=== PATIENT | female | born 1985 | race African-American/Black ===

== ENCOUNTER 2023-10-31 06:50 | Inpatient (IN) | payer OTHER ==
[2023-10-31] MEDS ORDERED: SUCCINYLCHOLINE CHLORIDE 200 MG/10 ML SYRINGE ONE (07:43)
[2023-10-31] MEDS ORDERED: morphine SULFATE/PF 1 MG/2 ML (2cc Syringe - QUVA) ONE (07:43)
[2023-10-31 08:03] VITALS: BMI 42.0
[2023-10-31] MEDS ORDERED: ELECTROLYTE-148 SOLN 500 ML IV ONE (08:30)
[2023-10-31] MEDS ORDERED: ELECTROLYTE-148 SOLN 1,000 ML IV SCH (08:30)
[2023-10-31] MEDS ORDERED: CITRIC ACID/SODIUM CITRATE 30 ML UNIT-DOSE CUP PO ONE (08:45)
[2023-10-31] MEDS ORDERED: ONDANSETRON 4 MG/2 ML VIAL IVPUSH PRN (09:59)
[2023-10-31] MEDS ORDERED: KETOROLAC TROMETHAMINE 30 MG/1 ML VIAL IVPUSH PRN (10:00)
[2023-10-31] MEDS: OXYTOCIN 20 UNITS in 0.9% NS 20 UNIT/1,000 ML INFUS.BAG IV SCH ×2 (10:00→16:22)
[2023-10-31] MEDS ORDERED: ACETAMINOPHEN 325 MG TABLET (FP) PO PRN (10:02)
[2023-10-31] MEDS ORDERED: METHYLERGONOVINE MALEATE 0.2 MG/1 ML AMP IM PRN (10:02)
[2023-10-31] MEDS ORDERED: SENNOSIDES/DOCUSATE COMBO (SENNA PLUS) TABLET (UD) PO PRN (10:02)
[2023-10-31] MEDS ORDERED: ACETAMINOPHEN 1000 MG/100 ML BAG IVPB PRN (10:05)
[2023-10-31] MEDS ORDERED: IBUPROFEN 800 MG/8 ML IJ IVPB PRN (10:06)
[2023-10-31] MEDS ORDERED: OXYTOCIN 20 UNITS in 0.9% NS 20 UNIT/1,000 ML INFUS.BAG IV ONE (10:52)
[2023-10-31] MEDS ORDERED: KETOROLAC TROMETHAMINE 30 MG/1 ML VIAL ONE (11:37)
[2023-10-31] MEDS ORDERED: oxyCODONE HCL 5 MG TABLET PO PRN ×2 (22:02)
[2023-11-01] MEDS: IBUPROFEN 600 MG TABLET (FP) PO PRN ×3 (02:03→17:07)
[2023-11-01] MEDS: SIMETHICONE 80 MG TAB.CHEW (FP) PO PRN ×2 (02:03→22:41)
[2023-11-01 07:59] LABS: BASO % 0.1 % (0-2.0); EOS % 1.4 % (0-4.5); HEMATOCRIT 32.2 % (32.4-45.2); HEMOGLOBIN 10.7 GM/dL (10.7-15.3); LYMPH % 13.1 % (8-40); MCH 29.6 pg (25.7-33.7); MCHC 33.2 g/dl (32.0-36.0); MEAN CELL VOLUME 89.1 fl (80-96); MEAN PLT VOLUME 9.3 fl (7.5-11.1); MONO % 5.5 % (3.8-10.2); NEUT % 79.9 % (42.8-82.8); PLATELET COUNT 154 10^3/uL (134-434); RBC 3.61 M/mm3 (3.60-5.2)
[2023-11-01] MEDS ORDERED: FLU VACCINE (FLULAVAL) PF 60 MCG/0.5 ML SYRINGE 2023-2024 IM ONE (10:00)
[2023-11-01] MEDS ORDERED: BISACODYL 10 MG SUPP.RECT RC PRN (10:02)
[2023-11-01] MEDS: PRENATAL VITAMINS W/ FOLIC ACID TABLET (FP) PO SCH (10:20)
[2023-11-01] MEDS: FERROUS SO4 325 MG TABLET (FP) PO SCH ×2 (10:20→17:33)
[2023-11-02] MEDS: SIMETHICONE 80 MG TAB.CHEW (FP) PO PRN ×2 (06:13→15:57)
[2023-11-02 09:23] VITALS: RESP 18
[2023-11-02] MEDS: PRENATAL VITAMINS W/ FOLIC ACID TABLET (FP) PO SCH (10:47)
[2023-11-02] MEDS: FERROUS SO4 325 MG TABLET (FP) PO SCH ×2 (10:47→18:17)
[2023-11-02] MEDS: IBUPROFEN 600 MG TABLET (FP) PO PRN (15:56)
[2023-11-02 23:12] VITALS: TEMP 98.8
[2023-11-03] MEDS: IBUPROFEN 600 MG TABLET (FP) PO PRN (06:23)
[2023-11-03] MEDS: SIMETHICONE 80 MG TAB.CHEW (FP) PO PRN (06:23)
[2023-11-03] MEDS: PRENATAL VITAMINS W/ FOLIC ACID TABLET (FP) PO SCH (09:59)
[2023-11-03] MEDS: FERROUS SO4 325 MG TABLET (FP) PO SCH (10:00)
[2023-11-03 10:20] VITALS: BP 123/64; PULSE 63
== END 2023-11-03 11:00 | disposition home or self-care (01) | DRG 788 ==
LOC: JLDR 06:50 → J3W 11:45
PROVIDERS: ADMIT Obstetrics & Gynecology; ATTEND Obstetrics & Gynecology
PROC: 10D00Z1 Extraction of Products of Conception, Low, Open Approach (ICD-10-PCS; principal; 2023-10-31)
DX: O34.211 Maternal care for low transverse scar from previous cesarean delivery (principal); O69.1XX0 Labor and delivery complicated by cord around neck, with compression, not applicable or unspecified; Z3A.39 39 weeks gestation of pregnancy; Z37.0 Single live birth
CPT/HCPCS: 36415; 85025; 88307-TC; 90686; 94010; G0008